=== PATIENT | female | born 2005 | race Caucasian/White ===

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

== ENCOUNTER 2024-01-03 05:06 | Inpatient (IN) | payer OTHER, SELFPAY ==
[2024-01-03] VITALS (62 sets, daily range): BP systolic 82–154; BP diastolic 50–104; PULSE 65–121; TEMP 35.8–36.8
--- OUTSIDE RECORDS SUMMARY | 2024-01-03 05:11 | XMS_ITS | CCD ---
Author Organization [facility] Care Team Providers Care Parachute Taper Name Role Phone No Pcp, No Pcp [...] Translations: [GENTAMICIN SULFATE] Drug Allergy 9 Itching [facility] (9 sources) Penicillins; Translations: [PENICILLINS] [...] UA Negative Negative - 4(70) +++ mg/dL [facility] Blood, UA Negative Negative - 50 Arsenio/mcL [facility] Clarity, UA Clear [facility] Color, UA Yellow [facility] Glucose, UA Negative Negative - 1999(110) ++++ mg/dL [facility] Interpretation and review of laboratory results Abnormal [facility] Ketones, UA Negative Negative - 160(16) ++++ mg/dL [facility] Leukocytes, UA Negative Negative - 500+++ Marie/mcL [facility] Nitrite, UA Negative Negative - Positive [facility] pH, UA 5.5 5 - 9 [facility] Protein, UA Negative Negative - 1999(20) ++++ mg/dL [facility] Spec Grav, UA 1.020 1 - 1.03 [facility] Urobilinogen, UA 1.0 0.2 - 12 mg/dL [facility] Ultrasound - OfficeOrdered B y: Lilian Sandhu on 11-14-2023 Radiology Study observation (narrative) [facility] Ultrasound - OfficeOrdered B y: Lilian Leales on 11-08-2023 [facility] CBC AND AUTO DIFFon 10-09-19 24 ABSOLUTE BASOPHIL 0.0 X10E9/L Normal 0.0-0.2 [facility] Comment on above: Performed By: #### L B1323, HBELEC, 27624-3 #### [facility] ([id number]) [address], [place] [address] #### CBCA, 16379-7, 8014-3, 14062-2, 1504-0 #### [facility] ([id number]) [address], [address] [place] [address] ABSOLUTE NEUTROPHIL 8.3 X10E9/L High 1.5-6.6 [facility] Comment on above: Performed By: #### L B1323, HBELEC, 26673-5 #### [facility] ([id number]) [address] [place] [address] #### CBCA, 53529-7, 8014-3, 74549-6, 1504-0 #### [facility] ([id number]) [address], [address] [place] [address] Basophils/100 WBC (Bld) 0.3 % Normal [facility] Comment on above: Performed By: #### L B1323, HBELEC, 88254-8 #### [facility] ([id number]) [address] [place] [address] #### CBCA, 19216-0, 8014-3, 58216-9, 1504-0 #### [facility] ([id number]) [address], [address] [place] [address] Eosinophils (Bld) [#/Vol] 0.0 10*3/uL Normal 0.0-0.4 [facility] Comment on above: Performed By: #### L B1323, HBELEC, 55825-8 #### [facility] ([id number]) [address] [place] [address] #### CBCA, 45152-7, 8014-3, 83817-9, 1504-0 #### [facility] ([id number]) [address], [address] [place] [address] Eosinophils/100 WBC (Bld) 0.3 % Normal [facility] Comment on above: Performed By: #### L B1323, HBELEC, 02442-1 #### [facility] ([id number]) [address] [place] [address] #### CBCA, 01772-8, 8014-3, 90485-7, 1504-0 #### [facility] ([id number]) [address], [address] [place] [address] Erythrocyte distribution width (RBC) [Ratio] 13.5 % Normal 11.5-15.0 [facility] Comment on above: Performed By: #### L B1323, HBELEC, 26452-4 #### [facility] ([id number]) [address] [place] [address] #### CBCA, 19803-9, 8014-3, 87042-4, 1504-0 #### [facility] ([id number]) [address], [facility] [address] [place] [address] Hematocrit (Bld) [Volume fraction] 31.1 % Low 35-47 [facility] Comment on above: Performed By: #### L B1323, HBELEC, 88870-9 #### [facility] ([id number]) [address] [place] [address] #### CBCA, 48072-9, 8014-3, 73806-8, 1504-0 #### [facility] ([id number]) [address], [facility] [address] [place] [address] Hemoglobin (Bld) [Mass/Vol] 11.0 g/dL Low 11.7-15.5 [facility] Comment on above: Performed By: #### L B1323, HBELEC, 06503-2 #### [facility] ([id number]) [address] [place] [address] #### CBCA, 27350-7, 8014-3, 12875-9, 1504-0 #### [facility] ([id number]) [address], [facility] [address] [place] [address] Lymphocytes (Bld) [#/Vol] 1.5 10*3/uL Normal 1.0-3.5 [facility] Comment on above: Performed By: #### L B1323, HBELEC, 03081-6 #### [facility] ([id number]) [address] [place] [address] #### CBCA, 25639-5, 8014-3, 08690-7, 1504-0 #### [facility] ([id number]) [address], [address] [place] [address] Lymphocytes/100 WBC (Bld) 14.1 % Normal [facility] Comment on above: Performed By: #### L B1323, HBELEC, 86834-8 #### [facility] ([id number]) [address] [place] [address] #### CBCA, 00650-2, 8014-3, 89644-2, 1504-0 #### [facility] ([id number]) [address], [address] [place] [address] MCH (RBC) [Entitic mass] 31.4 pg Normal 27-34 [facility] Comment on above: Performed By: #### L B1323, HBELEC, 86421-8 #### [facility] ([id number]) [address] [place] [address] #### CBCA, 06597-7, 8014-3, 16741-2, 1504-0 #### [facility] ([id number]) [address], [address] [place] [address] MCHC (RBC) [Mass/Vol] 35.3 g/dL Normal 32-36 [facility] Comment on above: Performed By: #### L B1323, HBELEC, 52264-6 #### [facility] ([id number]) [address] [place] [address] #### CBCA, 76751-5, 8014-3, 71887-4, 1504-0 #### [facility] ([id number]) [address], [address] [place] [address] MCV (RBC) [Entitic vol] 89 fL Normal 80-100 [facility] Comment on above: Performed By: #### L B1323, HBELEC, 61677-6 #### [facility] ([id number]) [address] [place] [address] #### CBCA, 14080-0, 8014-3, 74729-5, 1504-0 #### [facility] ([id number]) [address], [address] [place] [address] Monocytes (Bld) [#/Vol] 0.5 10*3/uL Normal 0-0.9 [facility] Comment on above: Performed By: #### L B1323, HBELEC, 75372-4 #### [facility] ([id number]) [address] [place] [address] #### CBCA, 02230-1, 8014-3, 86850-7, 1504-0 #### [facility] ([id number]) [address], [address] [place] [address] Monocytes/100 WBC (Bld) 5.2 % Normal [facility] Comment on above: Performed By: #### L B1323, HBELEC, 65835-6 #### [facility] ([id number]) [address] [place] [address] #### CBCA, 28192-9, 8014-3, 43101-2, 1504-0 #### [facility] ([id number]) [address], [address] [place] [address] Neutrophils/100 WBC (Bld) 80.1 % Normal [facility] Comment on above: Performed By: #### L B1323, HBELEC, 54122-2 #### [facility] ([id number]) [address] [place] [address] #### CBCA, 18790-6, 8014-3, 60234-2, 1504-0 #### [facility] ([id number]) [address], [address] [place] [address] Platelet mean volume (Bld) [Entitic vol] 8.5 fL Normal 7-12 [facility] Comment on above: Performed By: #### L B1323, HBELEC, 16901-6 #### [facility] ([id number]) [address] [place] [address] #### CBCA, 02219-7, 8014-3, 53102-6, 1504-0 #### [facility] ([id number]) [address] [facility], [address] [place] [address] Platelets (Bld) [#/Vol] 192 10*3/uL Normal 150-450 [facility] Comment on above: Performed By: #### L B1323, HBELEC, 97927-7 #### [facility] ([id number]) [address] [place] [address] #### CBCA, 54552-5, 8014-3, 25709-3, 1504-0 #### [facility] ([id number]) [address], [address] [place] [address] RBC COUNT 3.49 X10E12/L Low 3.80-5.20 [facility] Comment on above: Performed By: #### L B1323, HBELEC, 10472-4 #### [facility] ([id number]) [address] [place] [address] #### CBCA, 59552-7, 8014-3, 05093-2, 1504-0 #### [facility] ([id number]) [address] [place] [address], [address] [place] [address] WBC (Bld) [#/Vol] 10.4 10*3/uL Normal 4.0-11.0 [facility] Comment on above: Performed By: #### L B1323, HBELEC, 24103-6 #### [facility] ([id number]) [address] [place] [address] #### CBCA, 47172-9, 8014-3, 53633-5, 1504-0 #### [facility] ([id number]) [address] [place] [address], [address] [place] [address] CHLAMYDIA SEROLOGYon 024 C PNEUMONIAE IGG < 1:64 Normal <1:64 [facility] Comment on above: Performed By: #### S CLAM #### [facility] ([id number]) [address] [place] [address] C PNEUMONIAE IGM <1:20 Normal <1:20 [facility] Comment on above: Performed By: #### S CLAM #### [facility] ([id number]) [address] [place] [address] C PSITTACI IGG < 1:64 Normal <1:64 [facility] Comment on above: Result Comment: [...] developed and its performance characteristics determined by [facility]. It has not been cleared or approved by the [place] Food and Drug Administration. This test was performed in a CLIA certified laboratory and is intended for clinical purposes. Performed By: [facility] [address] [place] [address] Materials Scientist: Bernardino Burkett MD, PhD CLIA Number: [id number] Performed By: #### S CLAM #### [facility] ([id number]) [address] [place] [address] C PSITTACI IGM <1:20 Normal <1:20 [facility] Comment on above: Performed By: #### S CLAM #### [facility] ([id number]) [address] [place] [address] C TRACHOMATIS IGG 1:128 High <1:64 [facility] Comment on above: Performed By: #### S CLAM #### [facility] ([id number]) [address] [place] [address] C TRACHOMATIS IGM <1:20 Normal <1:20 [facility] Comment on above: Performed By: #### S CLAM #### [facility] ([id number]) [address] [place] [address] Glucose 1 Hr post 50 g gluco se PO [Mass/Vol]on 10-09-2023 GLU 1H POST 50G LOAD 135 mg/dL Normal 65-139 [facility] Comment on above: Performed By: #### L B1323, HBELEC, 12696-7 #### [facility] ([id number]) [address] [place] [address] #### CBCA, 58498-7, 8014-3, 60370-4, 1504-0 #### [facility] ([id number]) [address] [facility], [address] [place] [address] HCV RNA RICCI+probe Qnon 10-09 HCV RNA QUANT PCR Not detected Normal Undetected [facility] Comment on above: Result Comment: NOTE Result in log IU/mL is Undetected. ADDITIONAL INFORMATION The quantification range of this assay is 15 to 100,000,000 IU/mL (1.18 log to 8.00 log IU/mL). Testing was performed using the silke HCV test ([employer] with the silke [id number] System. Test Performed by: [facility] [address] [place] [address] Automotive Artist: Luis Manuel Wharton M.D. Ph.D.; CLIA# [id number] Performed By: #### L B1323, HBELEC, 64536-2 #### [facility] ([id number]) [address] [place] [address] #### CBCA, 27066-1, 8014-3, 35049-1, 1504-0 #### [facility] ([id number]) [address], [address] [place] [address] HGB ELECTRO INTERPon 024 HGB ELECTRO INTERP See below Normal [facility] Comment on above: Result Comment: NOTE [...] history. Performed By: #### L B1323, HBELEC, 97418-9 #### [facility] ([id number]) [address] [place] [address] #### CBCA, 77647-9, 8014-3, 30291-7, 1504-0 #### [facility] ([id number]) [address] [facility], [address] [place] [address] STAFF REVIEW See below Normal [facility] Comment on above: Result Comment: NOTE Reviewed by Tarah Mcdermott DO, MPH Test Performed By: [place] [address] Materials Scientist: Damon Marie III, M.D. CLIA #[id number] Performed By: #### L B1323, HBELEC, 12269-0 #### [facility] ([id number]) [address] [place] [address] #### CBCA, 27371-8, 8014-3, 98724-5, 1504-0 #### [facility] ([id number]) [address] [facility], [address] [place] [address] HGB ELECTROPHORESISon 2023 Abnormal Hb See below Normal No abnormal hemoglobin identified. [facility] Comment on above: Result Comment: NOTE No abnormal hemoglobin identified. Test Performed By: [place] [address] Materials Scientist: Damon Marie III, M.D. CLIA #[id number] Performed By: #### L B1323, HBELEC, 42798-5 #### [facility] ([id number]) [address] [place] [address] #### CBCA, 02140-7, 8014-3, 97805-9, 1504-0 #### [facility] ([id number]) [address] [facility], [address] [place] [address] Hb A Percent 97.2 % Normal 96.2-98.0 [facility] Comment on above: Performed By: #### L B1323, HBELEC, 41171-8 #### [facility] ([id number]) [address] [place] [address] #### CBCA, 16298-2, 8014-3, 01636-8, 1504-0 #### [facility] ([id number]) [address] [facility], [address] [place] [address] Hb A2 Percent 2.8 % Normal 2.0-3.1 [facility] Comment on above: Performed By: #### Jf B1323, HBELEC, 27699-7 #### [facility] ([id number]) [address] [place] [address] #### CBCA, 04906-2, 8014-3, 17331-0, 1504-0 #### [facility] ([id number]) [address] [place] [address], [address] [place] [address] Rubella virus IgG Qn (S)on 0 10-09-2023 RUBELLA IgG 35 IU/mL Normal [facility] Comment on above: Result Comment: Interpretation-------- <8 NEGATIVE-considered Not Immune 8-9 EQUIVOCAL-consider retesting with new specimen >9 POSITIVE-considered Immune Performed By: #### Jf B1323, HBELEC, 53930-6 #### [facility] ([id number]) [address] [place] [address] #### CBCA, 06734-4, 8014-3, 68263-7, 1504-0 #### [facility] ([id number]) [address] [place] [address], [address] [address] T. pallidum IgG+IgM IA Ql (S )on 10-09-2023 Syphilis Total <0.2 Normal 0.0-0.8 [facility] Comment on above: Result Comment: NON REACTIVE No serologic evidence of infection to Treponema pallidum (syphilis). Repeat testing may be considered in patients with suspected acute or primary syphilis in 2 to 4 weeks. Performed By: #### L B1323, HBELEC, 75849-8 #### [facility] ([id number]) [address] [place] [address], [place] [address] #### CBCA, 88506-1, 8014-3, 08005-1, 1504-0 #### [facility] ([id number]) [address] [facility], [address] [place] [address] VZV IgG IA Ql (S)on 10-09-19 24 VARICELLA IgG 0.4 AI Normal <0.9 [facility] Comment on above: Result Comment: Interpretation-------- <0.9 Negative 0.9 - 1.0 Equivocal >1.0 Positive Performed By: #### L B1323, HBELEC, 64666-3 #### [facility] ([id number]) [address] [place] [address] #### EFREMA, 84185-9, 8014-3, 68963-6, 1504-0 #### [facility] ([id number]) [address] [facility], [address] [place] [address] Vital Signs Date Time Vital Sign Value Performing Clinician Facility 12-06-2023 09:46-0500 Body height 165.1 cm Jennie Vargas MD Work Phone: [facility] 12-06-2023 09:46-0500 Body mass index (BMI) [Ratio] 28.51 kg/m2 Jennie Vargas MD Work Phone: [facility] 12-06-2023 09:46-0500 Body weight 77.7 kg [facility] 12-06-2023 09:46-0500 Diastolic blood pressure 65 mm[Hg] Jennie Vargas MD Work Phone: [facility] Comment on above: 26 cm arm circumfere nce/Dark blue cuff used 12-06-2023 09:46-0500 Heart rate 79 /min Jennie Vargas MD Work Phone: [facility] 12-06-2023 09:46-0500 Systolic blood pressure 124 mm[Hg] Jennie Vargas MD Work Phone: [facility] Comment on above: 26 cm arm circumfere nce/Dark blue cuff used 11-29-2023 11:10-0500 Body height 165.1 cm Yary Cantu MD Work Phone: [facility] 11-29-2023 11:10-0500 Body mass index (BMI) [Ratio] 28.32 kg/m2 Yary Cantu MD Work Phone: [facility] 11-29-2023 11:10-0500 Body weight 77.2 kg Yary Cantu MD Work Phone: [facility] 11-29-2023 11:10-0500 Diastolic blood pressure 81 mm[Hg] Yary Cantu MD Work Phone: [facility] 11-29-2023 11:10-0500 Heart rate 98 /min Yary Cantu MD Work Phone: [facility] 11-29-2023 11:10-0500 Systolic blood pressure 128 mm[Hg] Yary Cantu MD Work Phone: [facility] 11-15-2023 10:50-0500 Body mass index (BMI) [Ratio] 28.09 kg/m2 Emile Celia DO Work Phone: [facility] 11-15-2023 10:50-0500 Body weight 76.57 kg Emile Celia DO Work Phone: [facility] 11-15-2023 10:50-0500 Diastolic blood pressure 72 mm[Hg] Emile Celia DO Work Phone: [facility] 11-15-2023 10:50-0500 Systolic blood pressure 118 mm[Hg] Emile Celia DO Work Phone: [facility] Healthcare Encounters Encounter Date Encounter Type Care Provider Facility Start: 12-28-2023 End: 12-28-2023 ambulatory EMILE CELIA Not Available Start: 12-20-2023 End: 12-20-2023 ambulatory EMILE CELIA Not Available Start: 12-14-2023 End: 12-14-2023 ambulatory EMILE CELIA Not Available Start: 12-07-2023 End: 12-07-2023 ambulatory EMILE CELIA Not Available Start: 12-06-2023 End: 12-07-2023 ambulatory EMILE R CELIA [facility] Start: 12-06-2023 End: 12-06-2023 Office outpatient visit 15 minutes Jennie Vargas MD Work Phone: [facility] Comment on above: abnormality af fecting management of mother, single or unspecified fetus (Primary Dx); Pelvic kidney; Abnormal ultrasound; 35 weeks gestation of Start: 11-30-2023 End: 11-30-2023 ambulatory EMILE CELIA Not Available Start: 11-29-2023 End: 11-29-2023 Office consultation new/estab patient 60 min Yary Cantu MD Work Phone: [facility] Comment on above: renal anomaly, single gestation (Primary Dx) Start: 11-15-2023 End: 11-15-2023 ambulatory EMILE CELIA Not Available Start: 11-15-2023 End: 11-15-2023 Office outpatient visit 15 minutes Emile Celia DO Work Phone: [facility] Comment on above: Third trimester preg willis Start: 11-14-2023 Orders Only Not In System Ref Prov [facility] Start: 11-01-2023 Orders Only Donavan Pressley MD Work Phone: [facility] Start: 11-01-2023 End: 11-01-2023 ambulatory DANIELLE HARMAN Not Available Start: 10-18-2023 End: 10-18-2023 ambulatory EMILE CELIA Not Available Start: 10-17-2023 End: 10-18-2023 ambulatory [facility] Start: 10-09-2023 End: 10-10-2023 ambulatory ABEER [facility] Start: 09-29-2023 Documentation procedure Reed Ascencio LCGC Work Phone: [facility] Comment on above: Outgoing Ca ll Start: 09-28-2023 Orders Only Lilian aSndhu [employer] [facility] Comment on above: Pelvic kidney (Prima ry Dx); Choroid plexus cyst, , affecting care of mother, antepartum, single gestation; 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 Start: 09-19-2023 End: 09-20-2023 ambulatory [facility] Procedures Date Procedure Procedure Detail Performing Clinician Start: 11-15-2023 Urnls dip stick/tabl et rgnt non-auto w/o micrscp [facility] Work Phone: Start: 11-08-2023 ULTRASOUND OFFICE Not I n System Ref Prov Plan of Treatment Date Care Activity Detail Author Start: 12-05-2024 Adult BMI Screening Adult BMI Screen [facility] Start: 12-05-2024 Tobacco Screening Tobacco Screening [facility] Start: 11-29-2024 Adult BMI Screening Adult BMI Screen [facility] Start: 11-29-2024 Tobacco Screening Tobacco Screening [facility] Start: 10-09-2024 Screening for Chlamy laurel trachomatis Chlamydia Screening [facility] Start: 09-28-2024 End: 09-28-2024 US MFM with or without consult US MFM with or without consult Imaging Routine Pelvic kidney Choroid plexus cyst, , affecting care of mother, antepartum, single gestation 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 Expected: 09/28/2024 (Approximate), Expires: 09/28/[address] [facility] Work Phone: Comment on above: Expected: 09/28/2024 (Approximate), Expires: 09/28/2024 Start: 09-19-2024 Adult BMI Screening Adult BMI Screen ing [facility] Start: 09-19-2024 Tobacco Screening Tobacco Screening [facility] Start: 08-15-2024 Screening for Chlamy laurel trachomatis Chlamydia Screening [facility] Start: 12-06-2023 End: 12-06-2023 Patient encounter procedure [facility] Start: 11-30-2023 End: 11-30-2023 Patient encounter procedure 11/30/2023 10:40 AM EST Routine [facility] [address] [place] [phone] Emile Yang DO [address] [place] [address] [facility] Start: 11-29-2023 End: 11-29-2023 Patient encounter procedure 11/29/2023 11:00 AM EST Office Visit [facility] [address] [place] [id number] Yary Cantu MD [address] [place] [address] [facility] Start: 11-01-2023 End: [...] 10/17/2023 2:15 PM EST Appointment [facility] [address] [place] [id number] [facility] Start: 06-02-2023 Influenza vaccination Influenza Vacc ine [facility] Start: 2023 DTaP,Tdap and Td Vaccines (1 - Tdap) DTaP,Tdap and Td Vaccines (1 - Tdap) [facility] Start: 2022 Adult BMI Follow Up Plan Adult BMI Follow Up Plan [facility] Start: 2016 Depression Screening Depression Scre ening [facility] Payers Date Payer Category Payer Unknown [id number] 2.16.84 [id number] 2004 Unknown [id number] 2.16.8 [id number] 2004 Unknown [id number] 2.16.8 [id number] 2004 Unknown [id number] 2.16.84 [id number] 2004 Unknown [id number] 2.16.84 [id number] 2004 Unknown [id number] 2.16.84 [id number] 2004 Unknown [id number] 2.16.84 [id number] 2004 Unknown [id number] 2.16.84 [id number] 2004 Unknown [id number] 2.16.84 [id number] 2004 Unknown [id number] 2.16.84 [id number] 2004 Unknown [id number] 2.16.84 [id number] 2004 Unknown [id number] 2.16.84 [id number] 2004 Unknown [id number] 2.16.84 [id number] 2004 Unknown [id number] 2.16.84 [id number] 2003 Medicaid [id number] 2003 Medicaid [id number] Social History Date Type Detail Facility Start: 02-23-2023 End: 08-17-2023 Tobacco smoking status NHIS Never smoked tobacco [facility] Start: 02-23-2023 End: 08-17-2023 Tobacco use and exposure Smokeless tobacco non-user [facility] Start: 09-19-2023 End: 12-06-2023 Alcohol intake Ex-drinker (finding) [facility] Start: 11-12-2020 End: 09-19-2023 History of Social function [facility] Start: 11-12-2020 End: 09-19-2023 Tobacco use panel [facility] Housing Instability Unknown [facility] Start: 04-13-2023 [facility] Start: 2004 Sex Assigned At Not on file [facility] Start: 11-15-2023 Alcohol intake Lifetime non-d kassie (finding) [facility] Clinical Notes 09-29-2023 to 12-06-2023 Jennie Vargas [...] patient is in complete care of her presales senior specialist. Patient does have ultrasound and office visit [...] Referring and communicating with other health care information associate (not separately reported) Jennie Vargas MD [place] [address] [facility], the CDC, and other organizations representing maternal and public health professionals recommend that , , and lactating people and those considering receive the COVID-19 vaccination. Vaccination is the best method to reduce maternal and complications of SARS-CoV-2 infection. This document was created with [employer] technology. Though I make every effort to review the dictation as it is transcribed, on occasion the spoken word can be misinterpreted by the technology leading to inappropriate words, phrases, or sentences. This note is addressed to the requesting provider as a consultation for clinical guidance. Specific medical abbreviations are occasionally used and those are generally approved by the [place]?Board of?Obstetrics and?Gynecology?as well as?Kashif randall abbreviations. The above plan of care was based solely on the diagnoses for which a consultation was requested. ?More frequent testing may be indicated based on her other medical/obstetrical conditions. The management of other or medical conditions is beyond the scope of requested consultation and will continue to be followed by the primary presales senior specialist or primary care provider. Note to patient: [...] provider today? no documented in this encounter [employer] 11-29-2023 History of Present illness Narrative Referring Physician: Jagdish Lyle MD [address] Rogelio Abbott is a 18 y.o. [...] Ms. Abbott is planning to deliver at [facility]. I have recommended that we first get [...] no records available documented in this encounter [facility] [employer] 11-29-2023 Instructions Yary Cantu MD - 11/29/2023 [...] rule out VUR. [facility] History of Present illness Narrative Reason [...] nursing note reviewed. Exam conducted with a telegrapher agent present. Vitals: Estimated body mass index is [...] Emile Yang DO documented in this encounter [facility] 09-29-2023 History of Present illness Narrative Summary: FOB carrier screening results Called and discussed FOB's carrier screening results with Rogelio. He screened negative for cystic fibrosis and HBB-related hemoglobinopathies. We reviewed that the likelihood her is affected with CF or a hemoglobinopathy is low based on these results. She understood and had no further questions. 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 Choroid plexus cyst, , affecting care of mother, antepartum, single gestation 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 [facility] Diagnosis Third trimester state, incidental [facility] Diagnosis renal anomaly, single gestation- Primary [facility] Diagnosis abnormality affecting management of mother, single or unspecified fetus- 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 Abnormal ultrasound 35 weeks gestation of documented in this [facility] filedocumented in this [facility] filedocumented in this encounter [facility] filedocumented in this encounter [facility] on filedocumented in this encounter [facility] Reason for Referral Specialty Diagnoses / Procedures Referred By Bryan woodson Referred To Contact Maternal and Medicine Diagnoses Pelvic kidney Choroid plexus cyst, , affecting care of mother, antepartum, single gestation 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 Procedures US MFM with or without consult Jagdish Lyle MD [address], [address] [place] [id number] [facility] [address] [place] [address] Referral ID Status Reason Start Date Expiration Date V isits Requested Visits Authorized [id number] Pending Review 09/28/2023 09/27/2024 1 1 Summary Purpose Family History No Family History Records FoundNo Family History Records FoundNo Family History Records Found Advance Directives No Advanced Directives Records FoundNo Advanced Directives Records FoundNo Advanced Directives Records Found Additional Source Comments Care Teams (unrecognized sec tion and content) Parachute Taper Relationship Specialty Start Date End Date No Pcp, [place] [address] PCP - General Family Medicine 05/30/23 Parachute Taper Relationship Specialty Start Date End Date No Pcp, [place] [address] PCP - General Family Medicine 05/30/23 Parachute Taper Relationship Specialty Start Date End Date Emile Yang DO [address] , [place] [address] PCP - General Obstetrics and Gynecology 10/09/23 Parachute Taper Relationship Specialty Start Date End Date PhillMolly schneiderDO [address] [place] [address] PCP - General Family Medicine 02/23/23 Parachute Taper Relationship Specialty Start Date End Date Emile Yang DO [address] , [facility] [place] [address] PCP - General Obstetrics and Gynecology 10/09/23 Parachute Taper Relationship Specialty Start Date End Date Emile Yang DO [address] , [facility] [place], [place] [id number] PCP - General Obstetrics and Gynecology 10/09/23 Reason for Visit (unrecogniz ed section and content) Reason Onset Date Comments Outgoing Call 09/29/2023 Reason Comments Routine Visit Reason Comments New Patient Pelvic kidney Specialty Diagnoses / Procedures Referred By Bryan woodson Referred To Contact Pediatric Urology Diagnoses Pelvic kidney Jagdish Lyle MD [address] [address] Yary Cantu MD [address] [place] [address] Referral ID Status Reason Start Date Expiration Date Visits Requested Visits Authorized [id number] Pending Review Specialty Services Required 3 09/20/2024 1 1 Reason Comments 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 [facility] [employer] [facility]. provides no warranty or guarantee of the accuracy or completeness of information in this document.
[2024-01-03] MEDS: 0.9 % SODIUM CHLORIDE 1,000 ML 125 ML IV ×2 (05:47→12:54)
[2024-01-03 05:57] LABS: Hematocrit 33.8 % (36.0-48.0); Hemoglobin 11.8 g/dL (12.0-16.0); Mean Corpuscular HGB Conc 34.9 g/dL (29.9-35.2); Mean Corpuscular Hemoglobin 30.7 pg (26.7-34.0); Mean Platelet Volume 10.9 fL (9.5-13.5); Platelet Count 182 10^3/uL (150-450); Red Blood Count 3.84 10^6/uL (4.20-5.40); Red Cell Distribution Width 13.3 % (11.0-15.0); White Blood Count 11.6 10^3/uL (4.0-11.0)
[2024-01-03 06:08] LABS: Amphetamine Screen Urine NEGATIVE (NEGATIVE); Barbiturates Screen Urine NEGATIVE (NEGATIVE); Benzodiazepines Screen Urine NEGATIVE (NEGATIVE); Buprenorphine Screen Urine NEGATIVE (NEGATIVE); Cannabinoid Screen Urine NEGATIVE (NEGATIVE); Cocaine Screen Urine NEGATIVE (NEGATIVE); Methadone Screen Urine NEGATIVE (NEGATIVE); Methamphetamines Screen Urine NEGATIVE (NEGATIVE); Opiate Screen Urine NEGATIVE (NEGATIVE); Oxycodone Screen Urine NEGATIVE (NEGATIVE); Phencyclidine Screen Urine NEGATIVE (NEGATIVE); Tricyclic Antidepressant Urine NEGATIVE (NEGATIVE)
[2024-01-03] MEDS: OXYTOCIN/0.9 % SODIUM CHLORIDE 10 UNITS/500 ML PLAST..BAG 6 UNIT IV (06:17)
[2024-01-03] MEDS: ROPIVACAINE HCL/PF 400 MG/200 ML PREMIX 6 MG EPIDURAL (15:18)
[2024-01-03] MEDS: 0.9 % SODIUM CHLORIDE 1,000 ML 1000 ML IV (15:24)
[2024-01-03] MEDS: OXYTOCIN/0.9 % SODIUM CHLORIDE 10 UNITS/500 ML PLAST..BAG 60 UNIT IV (18:18)
--- NOTE | 2024-01-03 20:17 | W.PC.ACHO ---
Registration Status: ADM IN Primary Language: Moroccan Preferred Language: Moroccan Report recieved from Jer at 1900. Active Medications Generic Name Dose Route Start Last Admin Trade Name Freq PRN Reason Stop Dose Admin Carboprost Tromethamine 250 mcg 01/03/24 05:10 Carboprost Tromethamine 250 Mcg/Ml 1 Ml Vial IM 01/05/24 05:10 Q15M PRN Bleeding Diphenhydramine HCl 25 mg 01/03/24 05:10 Diphenhydramine Hcl 50 Mg/Ml (1ml) Vial IV 01/04/24 05:14 Q6H PRN Itching Ephedrine Sulfate 5 mg 01/03/24 05:10 Ephedrine Sulfate 50 Mg/Ml Vial IV 01/04/24 05:14 Q5M PRN Blood Pressure - Low Fentanyl Citrate 100 mcg 01/03/24 05:10 Fentanyl Citrate/Pf 100 Mcg/2 Ml Vial EPIDURAL ONCE PRN epidural Sodium Chloride 1,000 mls @ 125 mls/hr 01/03/24 05:30 01/03/24 12:54 Sodium Chloride 0.9% 1,000 Ml IV 125 mls/hr .Q8H MARK Administration Oxytocin/Sodium Chloride 20 units in 1,000 mls @ 125 mls/hr 01/03/24 05:10 Pitocin 20 Unit/1,000 Ml-Ns IV Q8H PRN POST DELIVERY Ropivacaine/Sodium Chloride 400 mg in 200 mls @ 6 mls/hr 01/03/24 05:15 01/03/24 15:18 Naropin 0.2% 400 Mg/200 Ml Bag EPIDURAL 6 mls/hr Q24H MARK Administration Oxytocin/Sodium Chloride 10 units in 500 mls @ 6 mls/hr 01/03/24 06:13 01/03/24 06:17 Pitocin 10 Unit/500 Ml-Ns IV 2 milliunit/min TITR PRN 6 mls/hr 0 Administration Protocol 2 MILLIUNIT/MIN Oxytocin/Sodium Chloride 10 units in 500 mls @ 6 mls/hr 01/03/24 17:30 01/03/24 18:18 Pitocin 10 Unit/500 Ml-Ns IV 0 milliunit/min TITR MARK 60 mls/hr Administration Protocol 2 MILLIUNIT/MIN Lidocaine 5 ml 01/03/24 05:10 Lidocaine Viscous 2% 15 Ml Solution TOPICAL ONCE PRN Pain Lidocaine 1 ml 01/03/24 05:10 Lidocaine Hcl 1% 200 Mg/20 Ml Mdv INJ ONCE PRN Pain Lidocaine 5 ml 01/03/24 05:10 Lidocaine Hcl 2% Pf 100 Mg/5 Ml Vial INJ 01/04/24 05:14 Q1H PRN epidural Methylergonovine Maleate 0.2 mg 01/03/24 05:10 Methylergonovine Maleate 0.2 Mg/Ml Ampule IM 01/05/24 05:10 ONCE PRN Uterine Contractility/Contract Methylergonovine Maleate 0.2 mg 01/03/24 05:10 Methylergonovine Maleate 0.2 Mg Tablet PO 01/05/24 05:10 Q4H PRN Uterine Contractility/Contract Misoprostol 600 mcg 01/03/24 05:10 Misoprostol 100 Mcg Tablet PO 01/05/24 05:10 ONCE PRN Uterine Bleeding Misoprostol 800 mcg 01/03/24 05:10 Misoprostol 100 Mcg Tablet SL 01/05/24 05:10 ONCE PRN Uterine Bleeding Misoprostol 1,000 mcg 01/03/24 05:10 Misoprostol 100 Mcg Tablet IN 01/05/24 05:10 ONCE PRN Uterine Bleeding Naloxone HCl 0.4 mg 01/03/24 05:10 Naloxone Hcl 0.4 Mg/Ml Vial IV 01/04/24 05:14 ONCE PRN epidural Ondansetron HCl 4 mg 01/03/24 05:10 Ondansetron Pf 4 Mg/2 Ml Vial IV Q6H PRN Nausea And Vomiting Ondansetron HCl 4 mg 01/03/24 05:10 Ondansetron 4 Mg Rapdis Tablet SL Q6H PRN Nausea And Vomiting Oxytocin 10 unit 01/03/24 05:10 Oxytocin 10 Unit/Ml Vial IM 01/05/24 05:10 ONCE PRN bleeding Diet Category Date Time Status Regular Consistency Diet Diet 01/03/24 05:11 Active Consults Category Date Time Status Consult to Anesthesiology Routine Cons 01/03/24 Ordered IV Insertion/Site Date of IV Line Insertion [ 01/03/24 Short PIV (<1.75 in) 20g left Hand] IV Insertion Time [Short PIV ( 05:38 <1.75 in) 20g left Hand] Neurology Patient orientation (short person,place,time,situation list) Patient orientation (short person,place,time,situation list) Respiratory Oxygen Delivery Method Room Air Oxygen Delivery Method Room Air Oxygen Delivery Method Room Air Catheter Urinary Catheter Date of 01/03/24 Insertion [Urethral] Urinary Catheter Time of 15:50 Insertion [Urethral]
[2024-01-03] MEDS: OXYTOCIN/0.9 % SODIUM CHLORIDE 20 UNITS/1,000 ML PLAST..BAG 125 UNIT IV (23:32)
[2024-01-03] MEDS: LIDOCAINE HCL 1% 200 MG/20 ML MDV INJ (23:32)
--- NOTE | 2024-01-03 23:46 | PM.OBPRCVD ---
Procedure Intrapartal events: None Induction method: per pitocin protocol Delivery augmentation: rupture of membranes and pitocin Delivery monitor: external FHT and external uterine Route of delivery: Episiotomy Description: none L&D Laceration Description: periurethral - 1st degree and perineal - 1st degree Delivery repair: Vicryl Estimated blood loss (mL): 200 Anesthesia type: Epidural Disposition: floor Infant Delivery date: 01/03/24 Gender: female presentation: vertex Placental delivery description: Spontaneous cord description: 3 Vessels
[2024-01-04] VITALS (14 sets, daily range): BP systolic 105–130; BP diastolic 58–76; PULSE 79–114; TEMP 35.8–36.8
[2024-01-04] MEDS: GLYCERIN/WITCH HAZEL PADS 1 PAD TOPICAL (00:31)
[2024-01-04] MEDS: BENZOCAINE/MENTHOL 85 GRAM SPRAY BOTTLE 1 APPLIC TOPICAL (00:31)
[2024-01-04] MEDS: IBUPROFEN 600 MG TABLET PO ×4 (00:31→20:18)
[2024-01-04 06:00] LABS: Basophils Percent Auto 0.1 % (0.2-2.0); Eosinophils Percent Auto 0.1 % (0.9-7.0); Hematocrit 28.4 % (36.0-48.0); Hemoglobin 9.7 g/dL (12.0-16.0); Immature Granulocytes Abs Auto 0.07 10^3/uL (0.00-0.03); Immature Granulocytes Pct Auto 0.4 % (0.0-0.5); Lymphocytes Absolute Auto 1.5 10^3/uL (1.2-3.8); Mean Corpuscular HGB Conc 34.2 g/dL (29.9-35.2); Mean Corpuscular Hemoglobin 30.5 pg (26.7-34.0); Mean Corpuscular Volume 89.3 fL (81.0-99.0); Mean Platelet Volume 10.8 fL (9.5-13.5); Monocytes Absolute Auto 1.4 10^3/uL (0.3-0.8); Monocytes Percent Auto 7.6 % (1.7-12.0); Neutrophils Absolute Auto 15.4 10^3/uL (1.4-6.5); Neutrophils Percent Auto 83.8 % (43.0-75.0); Platelet Count 153 10^3/uL (150-450); Red Blood Count 3.18 10^6/uL (4.20-5.40); Red Cell Distribution Width 13.4 % (11.0-15.0); White Blood Count 18.3 10^3/uL (4.0-11.0)
--- NOTE | 2024-01-04 07:31 | W.PC.ACHO ---
Registration Status: ADM IN Primary Language: Dominican Preferred Language: Dominican Report given to jody CAIN at 0705. Active Medications Generic Name Dose Route Start Last Admin Trade Name Freq PRN Reason Stop Dose Admin Acetaminophen 650 mg 01/03/24 23:47 Acetaminophen 325 Mg Tablet PO Q6H PRN Mild Pain Al Hydroxide/Mg Hydroxide 2,400 mg 01/03/24 23:47 Magnesium Hydroxide 2,400 Mg/10 Ml Oral.Susp PO Q6H PRN Dyspepsia Benzocaine/Menthol 1 applic 01/03/24 23:47 01/04/24 00:31 Benzocaine/Menthol 85 Gram Fine Bottle TOPICAL 1 applic Q2H PRN Administration Pain Carboprost Tromethamine 250 mcg 01/03/24 05:10 Carboprost Tromethamine 250 Mcg/Ml 1 Ml Vial IM 01/05/24 05:10 Q15M PRN Bleeding Diphtheria/Pertussis/Tetanus Vacc 0.5 ml 01/05/24 09:00 Adacel Diph,Pertuss(Acell),Tet Vac/Pf 0.5 Ml Adult Syringe IM 01/05/24 09:01 .ONCE ONE Docusate Sodium 100 mg 01/04/24 09:00 Docusate Sodium 100 Mg Capsule PO BID MARK Fentanyl Citrate 100 mcg 01/03/24 05:10 Fentanyl Citrate/Pf 100 Mcg/2 Ml Vial EPIDURAL ONCE PRN epidural Sodium Chloride 1,000 mls @ 125 mls/hr 01/03/24 05:30 01/03/24 12:54 Sodium Chloride 0.9% 1,000 Ml IV 125 mls/hr .Q8H MARK Administration Ropivacaine/Sodium Chloride 400 mg in 200 mls @ 6 mls/hr 01/03/24 05:15 01/03/24 15:18 Naropin 0.2% 400 Mg/200 Ml Bag EPIDURAL 6 mls/hr Q24H MARK Administration Oxytocin/Sodium Chloride 10 units in 500 mls @ 6 mls/hr 01/03/24 06:13 01/03/24 06:17 Pitocin 10 Unit/500 Ml-Ns IV 2 milliunit/min TITR PRN 6 mls/hr 0 Administration Protocol 2 MILLIUNIT/MIN Oxytocin/Sodium Chloride 10 units in 500 mls @ 6 mls/hr 01/03/24 17:30 01/03/24 18:18 Pitocin 10 Unit/500 Ml-Ns IV 0 milliunit/min TITR MARK 60 mls/hr Administration Protocol 2 MILLIUNIT/MIN Ibuprofen 600 mg 01/03/24 23:47 01/04/24 00:31 Ibuprofen 600 Mg Tablet PO 600 mg Q6H PRN Administration Moderate Pain Lidocaine 5 ml 01/03/24 05:10 Lidocaine Viscous 2% 15 Ml Solution TOPICAL ONCE PRN Pain Lidocaine 1 ml 01/03/24 05:10 01/03/24 23:32 Lidocaine Hcl 1% 200 Mg/20 Ml Mdv INJ 1 ml ONCE PRN Administration Pain Measles/Mumps/Rubella Vaccine Live 0.5 ml 01/05/24 09:00 Measles,Mumps,Rubella Vacc/Pf 0.5 Ml Vial SQ 01/05/24 09:01 .ONCE ONE Methylergonovine Maleate 0.2 mg 01/03/24 05:10 Methylergonovine Maleate 0.2 Mg/Ml Ampule IM 01/05/24 05:10 ONCE PRN Uterine Contractility/Contract Methylergonovine Maleate 0.2 mg 01/03/24 05:10 Methylergonovine Maleate 0.2 Mg Tablet PO 01/05/24 05:10 Q4H PRN Uterine Contractility/Contract Misoprostol 600 mcg 01/03/24 05:10 Misoprostol 100 Mcg Tablet PO 01/05/24 05:10 ONCE PRN Uterine Bleeding Misoprostol 800 mcg 01/03/24 05:10 Misoprostol 100 Mcg Tablet SL 01/05/24 05:10 ONCE PRN Uterine Bleeding Misoprostol 1,000 mcg 01/03/24 05:10 Misoprostol 100 Mcg Tablet MN 01/05/24 05:10 ONCE PRN Uterine Bleeding Ondansetron HCl 4 mg 01/03/24 05:10 Ondansetron Pf 4 Mg/2 Ml Vial IV Q6H PRN Nausea And Vomiting Ondansetron HCl 4 mg 01/03/24 05:10 Ondansetron 4 Mg Rapdis Tablet SL Q6H PRN Nausea And Vomiting Oxytocin 10 unit 01/03/24 05:10 Oxytocin 10 Unit/Ml Vial IM 01/05/24 05:10 ONCE PRN bleeding Senna 17.2 mg 01/03/24 20:00 Sennosides 8.6 Mg Tablet PO QHS PRN Constipation Simethicone 80 mg 01/03/24 23:47 Simethicone 80 Mg Tab.Chew PO QID PRN Abdominal Distention Temazepam 15 mg 01/03/24 23:47 Temazepam 15 Mg Capsule PO QHS PRN Sleep Witch Pat/Glycerin 1 pad 01/03/24 23:47 01/04/24 00:31 Glycerin/Witch Pat Pads TOPICAL 1 pad Q2H PRN Administration Pain Diet Category Date Time Status Regular Consistency Diet Diet 01/03/24 23:48 Active Neurology Patient orientation (short person,place,time,situation list) Respiratory Oxygen Delivery Method Room Air Oxygen Delivery Method Room Air Oxygen Delivery Method Room Air Oxygen Delivery Method Room Air Renal Bladder Pattern Continent Bladder Pattern Continent Catheter Urinary Catheter Date of 01/03/24 Insertion [Urethral] Urinary Catheter Time of 15:50 Insertion [Urethral]
--- NOTE | 2024-01-04 08:06 | P.OBPN_ITS ---
OB - PN: Subj Subjective Patient comments: no complaints [place] status: doing well and well [place] feeding status: exclusively Exam Constitutional Vital Signs, click to edit/add: Last Vital Signs Temp 96.4 F L 01/04/24 03:26 Pulse 81 01/04/24 07:38 Resp 16 01/04/24 03:30 BP 109/66 01/04/24 07:38 O2 Del Method Room Air 01/04/24 03:30 Documenting provider has reviewed patient's vital signs: yes Common normals: oriented x3 Orientation/consciousness: Yes awake, Yes oriented to person, Yes oriented to place and Yes oriented to time HENMT Common normals: normocephalic Eye Common normals: EOMs intact bilaterally Neck & C-Spine Common normals: full ROM and no lymphadenopathy Lymph Lymphatic: no lymphadenopathy noted Chest Common normals: inspection of chest normal Respiratory Common normals: normal respiratory effort Auscultation: clear to auscultation bilaterally Cardio Common normals: regular rate and regular rhythm Rate: regular rate Rhythm: regular rhythm GI Common normals: Normal to inspection, nondistended, normoactive bowel sounds present, soft to palpation and non-tender Auscultation: normoactive bowel sounds Palpation: soft Common normals: no CVA tenderness Back & Pelvis Common normals: no CVA tenderness Extremity Common normals: normal to inspection and full ROM Neuro Common normals: oriented x3 Sensorium/orientation: awake, alert, oriented to person, oriented to place and oriented to time Psych Common normals: mental status grossly normal and thought process normal Attitude: calm Results Labs Labs: Short CBC 01/04/24 Range/Units 05:54 WBC 18.3 H (4.0-11.0) 10^3/uL Hgb 9.7 L (12.0-16.0) g/dL Hct 28.4 L (36.0-48.0) % Plt Count 153 (150-450) 10^3/uL Urinary Catheter Management Urinary Catheter Management Urethral: Cath placed during this visit: yes Urethral indwelling: No Insertion date: 01/03/24 Insertion time: 15:50 OB - PN: A/P Plan - Vaginal Delivery day: 1 Plan: routine care Time Spent with Patient Time: Total time spent is greater than 50% in coordination of care (as documented) at patient's floor/unit and/or counseling patient: Total time spent with greater than 50% in coordination of care (as documented) at patient's floor/unit and/or counseling patient: less than 15 minutes
[2024-01-04] MEDS: DOCUSATE SODIUM 100 MG CAPSULE PO (20:18)
[2024-01-05] MEDS: IBUPROFEN 600 MG TABLET PO (09:13)
[2024-01-05] MEDS: DOCUSATE SODIUM 100 MG CAPSULE PO (09:13)
[2024-01-05 09:30] VITALS: TEMP 36.7
--- NOTE | 2024-01-05 09:52 | P.OBPN_ITS ---
OB - PN: Subj Subjective Patient comments: no complaints and pain well controlled [place] status: doing well Exam Constitutional Vital Signs, click to edit/add: Last Vital Signs Temp 96.6 F L 01/04/24 23:38 Pulse 79 01/04/24 23:38 Resp 18 01/04/24 23:35 BP 113/68 01/04/24 23:38 O2 Del Method Room Air 01/04/24 23:35 Documenting provider has reviewed patient's vital signs: yes Common normals: no apparent distress Respiratory Common normals: normal respiratory effort and clear to auscultation bilaterally Cardio Common normals: regular rate and regular rhythm GI Common normals: Normal to inspection, nondistended, normoactive bowel sounds present Extremity Common normals: no clubbing, cyanosis or edema and no calf tenderness Urinary Catheter Management Urinary Catheter Management Urethral: Cath placed during this visit: yes Urethral indwelling: No Insertion date: 01/03/24 Insertion time: 15:50 OB - PN: A/P Plan - Vaginal Delivery day: 2 Plan: routine care, discharge home and follow up 6 weeks Time Spent with Patient Time: Total time spent is greater than 50% in coordination of care (as documented) at patient's floor/unit and/or counseling patient: Total time spent with greater than 50% in coordination of care (as documented) at patient's floor/unit and/or counseling patient: less than 15 minutes
[2024-01-05 10:43] VITALS: BP 113/66; PULSE 77
== END 2024-01-05 12:50 | disposition home or self-care (01) | DRG 560 ==
PROVIDERS: Admitting Provider Obstetrics & Gynecology; Visit Provider Obstetrics & Gynecology
DX: O70.0 First degree perineal laceration during delivery (principal); Z3A.39 39 weeks gestation of pregnancy; Z37.0 Single live birth; Z88.0 Allergy status to penicillin
CPT/HCPCS: 36415; 51702; 59050; 59410; 80307; 85025; 85027; 86850; 86900; 86901; 96365; 96366; 96376

== ENCOUNTER 2024-01-09 07:57 | Outpatient (OUT) | payer OTHER, SELFPAY ==
--- OUTSIDE RECORDS SUMMARY | 2024-01-09 08:04 | XMS_ITS | CCD ---
Author Organization [facility] Care Team Providers Care Certified Hyperbaric Technologist Name Role Phone No Pcp, No Pcp Primary Care Provider Unavailabl e AHMED, ABEER Referring Unavailable CELIA, EMILE R Primary Care Unavailable Celia DO, Emile R Primary Care Provider [phone] Molly Solo DO Primary Care Provider CELIA, [...] SULFATE] Drug Allergy 9 Itching [facility] (9 sources) Penicillins; Translations: [PENICILLINS] Propensity to adverse reactions to drug 9 Anaphylaxis, Hives [facility] (2 sources) Gentamicin Drug Allergy [...] UA Negative Negative - 4(70) +++ mg/dL [facility] Blood, UA Negative Negative - 50 Arsenio/mcL [facility] Clarity, UA Clear [facility] Color, UA Yellow [facility] Glucose, UA Negative Negative - 1999(110) ++++ mg/dL [facility] Interpretation and review of laboratory results Abnormal [facility] Ketones, UA Negative Negative - 160(16) ++++ mg/dL [facility] Leukocytes, UA Negative Negative - 500+++ Marie/mcL [facility] Nitrite, UA Negative Negative - Positive [facility] pH, UA 5.5 5 - 9 [facility] Protein, UA Negative Negative - 1999(20) ++++ mg/dL [facility] Spec Grav, UA 1.020 1 - 1.03 [facility] Urobilinogen, UA 1.0 0.2 - 12 mg/dL [facility] Ultrasound - OfficeOrdered B y: Lilian Sandhu on 11-14-2023 Radiology Study observation (narrative) [facility] Ultrasound - OfficeOrdered B y: Lilian Leales on 11-08-2023 [facility] CBC AND AUTO DIFFon 10-09-19 24 ABSOLUTE BASOPHIL 0.0 X10E9/L Normal 0.0-0.2 [facility] Comment on above: Performed By: #### L B1323, HBELEC, 63286-4 #### [facility] ([id number]) [address] [facility], [place] [address] #### CBCA, 45951-2, 8014-3, 50070-1, 1504-0 #### [facility] ([id number]) [address], [address] [place] [address] ABSOLUTE NEUTROPHIL 8.3 X10E9/L High 1.5-6.[address] [facility] Comment on above: Performed By: #### L B1323, HBELEC, 06314-6 #### [facility] ([id number]) [address] [place] [address] #### CBCA, 42005-0, 8014-3, 96880-3, 1504-0 #### [facility] ([id number]) [address], [address] [place] [address] Basophils/100 WBC (Bld) 0.3 % Normal [facility] Comment on above: Performed By: #### L B1323, HBELEC, 19123-0 #### [facility] ([id number]) [address] [place] [address] #### CBCA, 44609-5, 8014-3, 03205-6, 1504-0 #### [facility] ([id number]) [address], [address] [place] [address] Eosinophils (Bld) [#/Vol] 0.0 10*3/uL Normal 0.0-0.4 [facility] Comment on above: Performed By: #### L B1323, HBELEC, 50153-2 #### [facility] ([id number]) [address] [place] [address] #### CBCA, 61260-6, 8014-3, 11347-7, 1504-0 #### [facility] ([id number]) [address], [address] [place] [address] Eosinophils/100 WBC (Bld) 0.3 % Normal [facility] Comment on above: Performed By: #### L B1323, HBELEC, 35630-1 #### [facility] ([id number]) [address] [place] [address] #### CBCA, 47169-8, 8014-3, 03119-7, 1504-0 #### [facility] ([id number]) [address], [address] [place] [address] Erythrocyte distribution width (RBC) [Ratio] 13.5 % Normal 11.5-15.0 [facility] Comment on above: Performed By: #### L B1323, HBELEC, 38962-7 #### [facility] ([id number]) [address] [place] [address] #### CBCA, 92599-0, 8014-3, 32323-2, 1504-0 #### [facility] ([id number]) [address], [facility] [address] [place] [address] Hematocrit (Bld) [Volume fraction] 31.1 % Low 35-47 [facility] Comment on above: Performed By: #### L B1323, HBELEC, 25864-9 #### [facility] ([id number]) [address] [place] [address] #### CBCA, 92924-8, 8014-3, 84321-8, 1504-0 #### [facility] ([id number]) [address], [facility] [address] [place] [address] Hemoglobin (Bld) [Mass/Vol] 11.0 g/dL Low 11.7-15.5 [facility] Comment on above: Performed By: #### L B1323, HBELEC, 77082-3 #### [facility] ([id number]) [address] [place] [address] #### CBCA, 06710-1, 8014-3, 78261-4, 1504-0 #### [facility] ([id number]) [address], [facility] [address] [place] [address] Lymphocytes (Bld) [#/Vol] 1.5 10*3/uL Normal 1.0-3.5 [facility] Comment on above: Performed By: #### L B1323, HBELEC, 83641-7 #### [facility] ([id number]) [address] [place] [address] #### CBCA, 22656-0, 8014-3, 65049-5, 1504-0 #### [facility] ([id number]) [address], [address] [place] [address] Lymphocytes/100 WBC (Bld) 14.1 % Normal [facility] Comment on above: Performed By: #### L B1323, HBELEC, 06823-8 #### [facility] ([id number]) [address] [place] [address] #### CBCA, 72384-6, 8014-3, 83874-9, 1504-0 #### [facility] ([id number]) [address], [address] [place] [address] MCH (RBC) [Entitic mass] 31.4 pg Normal 27-34 [facility] Comment on above: Performed By: #### L B1323, HBELEC, 99319-6 #### [facility] ([id number]) [address] [place] [address] #### CBCA, 54542-2, 8014-3, 96273-4, 1504-0 #### [facility] ([id number]) [address], [address] [place] [address] MCHC (RBC) [Mass/Vol] 35.3 g/dL Normal 32-36 [facility] Comment on above: Performed By: #### L B1323, HBELEC, 65931-0 #### [facility] ([id number]) [address] [place] [address] #### CBCA, 11480-1, 8014-3, 75799-6, 1504-0 #### [facility] ([id number]) [address], [address] [place] [address] MCV (RBC) [Entitic vol] 89 fL Normal 80-100 [facility] Comment on above: Performed By: #### L B1323, HBELEC, 57301-5 #### [facility] ([id number]) [address] [place] [address] #### CBCA, 61745-5, 8014-3, 18694-3, 1504-0 #### [facility] ([id number]) [address], [address] [place] [address] Monocytes (Bld) [#/Vol] 0.5 10*3/uL Normal 0-0.9 [facility] Comment on above: Performed By: #### L B1323, HBELEC, 29766-5 #### [facility] ([id number]) [address] [place] [address] #### CBCA, 78379-6, 8014-3, 87637-4, 1504-0 #### [facility] ([id number]) [address], [address] [place] [address] Monocytes/100 WBC (Bld) 5.2 % Normal [facility] Comment on above: Performed By: #### L B1323, HBELEC, 64354-3 #### [facility] ([id number]) [address] [place] [address] #### CBCA, 23957-7, 8014-3, 04715-5, 1504-0 #### [facility] ([id number]) [address], [address] [place] [address] Neutrophils/100 WBC (Bld) 80.1 % Normal [facility] Comment on above: Performed By: #### L B1323, HBELEC, 43086-9 #### [facility] ([id number]) [address] [place] [address] #### CBCA, 70805-9, 8014-3, 51827-5, 1504-0 #### [facility] ([id number]) [address], [address] [place] [address] Platelet mean volume (Bld) [Entitic vol] 8.5 fL Normal 7-12 [facility] Comment on above: Performed By: #### L B1323, HBELEC, 10970-1 #### [facility] ([id number]) [address] [place] [address] #### CBCA, 29093-3, 8014-3, 30477-1, 1504-0 #### [facility] ([id number]) [address] [facility] [place] [address] Platelets (Bld) [#/Vol] 192 10*3/uL Normal 150-450 [facility] Comment on above: Performed By: #### L B1323, HBELEC, 16679-6 #### [facility] ([id number]) [address] [place] [address] #### CBCA, 06979-6, 8014-3, 53928-8, 1504-0 #### [facility] ([id number]) [address], [address] [place] [address] RBC COUNT 3.49 X10E12/L Low 3.80-5.20 [facility] Comment on above: Performed By: #### L B1323, HBELEC, 88799-0 #### [facility] ([id number]) [address] [place] [address] #### CBCA, 23725-6, 8014-3, 31047-1, 1504-0 #### [facility] ([id number]) [address] [place] [address], [address] [place] [address] WBC (Bld) [#/Vol] 10.4 10*3/uL Normal 4.0-11.0 [facility] Comment on above: Performed By: #### L B1323, HBELEC, 67264-0 #### [facility] ([id number]) [address] [place] [address] #### CBCA, 54752-1, 8014-3, 17135-0, 1504-0 #### [facility] ([id number]) [address] [place] [address], [address] [place] [address] CHLAMYDIA SEROLOGYon 024 C PNEUMONIAE IGG < 1:64 Normal <1:64 [facility] Comment on above: Performed By: #### S CLAM #### [facility] ([id number]) [address] [place] [address] C PNEUMONIAE IGM <1:20 Normal <1:20 [facility] Comment on above: Performed By: #### S CLAM #### [facility] ([id number]) [address] [place] [address] C PSITTACI IGG < 1:64 Normal <1:64 [facility] Comment on above: Result Comment: [...] developed and its performance characteristics determined by [email or web address]. It has not been cleared or approved by the [place] Food and Drug Administration. This test was performed in a CLIA certified laboratory and is intended for clinical purposes. Performed By: [email or web address] [address] [place] [address] Agency Recruiter: Bernardino Burkett MD, PhD CLIA Number: [id number] Performed By: #### S CLAM #### [facility] ([id number]) [address] [place] [address] C PSITTACI IGM <1:20 Normal <1:20 [facility] Comment on above: Performed By: #### S CLAM #### [facility] ([id number]) [address] [place] [address] C TRACHOMATIS IGG 1:128 High <1:64 [facility] Comment on above: Performed By: #### S CLAM #### [facility] ([id number]) [address] [place] [address] C TRACHOMATIS IGM <1:20 Normal <1:20 [facility] Comment on above: Performed By: #### S CLAM #### [facility] ([id number]) [address] [place] [address] Glucose 1 Hr post 50 g gluco se PO [Mass/Vol]on 10-09-2023 GLU 1H POST 50G LOAD 135 mg/dL Normal 65-[address] [facility] Comment on above: Performed By: #### L B1323, HBELEC, 92535-6 #### [facility] ([id number]) [address] [place] [address] #### CBCA, 18350-1, 8014-3, 36404-9, 1504-0 #### [facility] ([id number]) [address] [facility] [facility] [place] [address] HCV RNA RICCI+probe Qnon 10-09 HCV RNA QUANT PCR Not detected Normal Undetected [facility] Comment on above: Result Comment: NOTE Result in log IU/mL is Undetected. ADDITIONAL INFORMATION The quantification range of this assay is 15 to 100,000,000 IU/mL (1.18 log to 8.00 log IU/mL). Testing was performed using the silke HCV test ([employer] with the silke Decision Pace0 System. Test Performed by: [facility] [address] [place] [address] Concierge Receptionist: Luis Manuel Wharton M.D. Ph.D.; CLIA# [id number] Performed By: #### L B1323, HBELEC, 40277-0 #### [facility] ([id number]) [address] [place] [address] #### CBCA, 99745-7, 8014-3, 69205-2, 1504-0 #### [facility] ([id number]) [address], [address] [place] [address] HGB ELECTRO INTERPon 024 HGB ELECTRO INTERP See below Normal [facility] Comment on above: Result Comment: NOTE [...] history. Performed By: #### L B1323, HBELEC, 53718-5 #### [facility] ([id number]) [address] [place] [address] #### CBCA, 30174-9, 8014-3, 73352-6, 1504-0 #### [facility] ([id number]) [address] [facility] [facility] [place] [address] STAFF REVIEW See below Normal [facility] Comment on above: Result Comment: NOTE Reviewed by Traah Mcdermott DO, MPH Test Performed By: [place] [address] Agency Recruiter: Damon Marie III, M.D. CLIA #[id number] Performed By: #### L B1323, HBELEC, 90640-7 #### [facility] ([id number]) [address] [place] [address] #### CBCA, 57384-3, 8014-3, 14671-7, 1504-0 #### [facility] ([id number]) [address] [facility] [facility] [place] [address] HGB ELECTROPHORESISon 2023 Abnormal Hb See below Normal No abnormal hemoglobin identified. [facility] Comment on above: Result Comment: NOTE No abnormal hemoglobin identified. Test Performed By: [place] [address] Agency Recruiter: Damon Marie III, M.D. CLIA #[id number] Performed By: #### L B1323, HBELEC, 86292-8 #### [facility] ([id number]) [address] [place] [address] #### CBCA, 69168-1, 8014-3, 92160-2, 1504-0 #### [facility] ([id number]) [address] [facility] [facility] [place] [address] Hb A Percent 97.2 % Normal 96.2-98.0 [facility] Comment on above: Performed By: #### L B1323, HBELEC, 46544-2 #### [facility] ([id number]) [address] [place] [address] #### CBCA, 55689-9, 8014-3, 64203-8, 1504-0 #### [facility] ([id number]) [address] [facility], [address] [place] [address] Hb A2 Percent 2.8 % Normal 2.0-3.1 [facility] Comment on above: Performed By: #### Jf B1323, HBELEC, 53220-5 #### [facility] ([id number]) [address] [place] [address] #### CBCA, 90357-5, 8014-3, 15195-7, 1504-0 #### [facility] ([id number]) [address] [place] [address], [address] [place] [address] Rubella virus IgG Qn (S)on 0 10-09-2023 RUBELLA IgG 35 IU/mL Normal [facility] Comment on above: Result Comment: Interpretation-------- <8 NEGATIVE-considered Not Immune 8-9 EQUIVOCAL-consider retesting with new specimen >9 POSITIVE-considered Immune Performed By: #### Jf B1323, HBELEC, 17809-1 #### [facility] ([id number]) [address] [place] [address] #### CBCA, 33674-2, 8014-3, 93760-1, 1504-0 #### [facility] ([id number]) [address] [place] [address], [address] [address] T. pallidum IgG+IgM IA Ql (S )on 10-09-2023 Syphilis Total <0.2 Normal 0.0-0.8 [facility] Comment on above: Result Comment: NON REACTIVE No serologic evidence of infection to Treponema pallidum (syphilis). Repeat testing may be considered in patients with suspected acute or primary syphilis in 2 to 4 weeks. Performed By: #### L B1323, HBELEC, 67160-9 #### [facility] ([id number]) [address] [place] [address], [place] [address] #### CBCA, 63566-6, 8014-3, 74059-4, 1504-0 #### [facility] ([id number]) [address] [facility], [address] [place] [address] VZV IgG IA Ql (S)on 10-09-19 24 VARICELLA IgG 0.4 AI Normal <0.9 [facility] Comment on above: Result Comment: Interpretation-------- <0.9 Negative 0.9 - 1.0 Equivocal >1.0 Positive Performed By: #### L B1323, HBELEC, 29635-8 #### [facility] ([id number]) [address] [place] [address] #### EFREMA, 36940-4, 8014-3, 95672-7, 1504-0 #### [facility] ([id number]) [address] [facility], [address] [place] [address] Vital Signs Date Time Vital Sign Value Performing Clinician Facility 12-06-2023 09:46-0500 Body height 165.1 cm Jennie Vargas MD Work Phone: [facility] 12-06-2023 09:46-0500 Body mass index (BMI) [Ratio] 28.51 kg/m2 Jennie Vargas MD Work Phone: [facility] 12-06-2023 09:46-0500 Body weight 77.7 kg [facility] MD [facility] 12-06-2023 09:46-0500 Diastolic blood pressure 65 mm[Hg] Jennie Vargas MD Work Phone: [facility] Comment on above: 26 cm arm circumfere nce/Dark blue cuff used 12-06-2023 09:46-0500 Heart rate 79 /min Jennie Vargas MD Work Phone: [facility] 12-06-2023 09:46-0500 Systolic blood pressure 124 mm[Hg] Jennie Vargas MD Work Phone: [facility] Comment on above: 26 cm arm circumfere nce/Dark blue cuff used 11-29-2023 11:10-0500 Body height 165.1 cm Yary Cantu MD Work Phone: [facility] 11-29-2023 11:10-0500 Body mass index (BMI) [Ratio] 28.32 kg/m2 Yary Cantu MD Work Phone: [facility] 11-29-2023 11:10-0500 Body weight 77.2 kg Yary Cantu MD Work Phone: [facility] 11-29-2023 11:10-0500 Diastolic blood pressure 81 mm[Hg] Yary Cantu MD Work Phone: [facility] 11-29-2023 11:10-0500 Heart rate 98 /min Yary Cantu MD Work Phone: [facility] 11-29-2023 11:10-0500 Systolic blood pressure 128 mm[Hg] Yary Cantu MD Work Phone: [facility] 11-15-2023 10:50-0500 Body mass index (BMI) [Ratio] 28.09 kg/m2 Emile Celia DO Work Phone: [facility] 11-15-2023 10:50-0500 Body weight 76.57 kg Emile Celia DO Work Phone: [facility] 11-15-2023 10:50-0500 Diastolic blood pressure 72 mm[Hg] Emile Celia DO Work Phone: [facility] 11-15-2023 10:50-0500 Systolic blood pressure 118 mm[Hg] Emile Celia DO Work Phone: [facility] Healthcare Encounters Encounter Date Encounter Type Care Provider Facility Start: 12-28-2023 End: 12-28-2023 ambulatory EMILE CELIA Not Available Start: 12-20-2023 End: 12-20-2023 ambulatory EMILE CELIA Not Available Start: 12-14-2023 End: 12-14-2023 ambulatory EMILE CELIA Not Available Start: 12-07-2023 End: 12-07-2023 ambulatory EMILE CELIA Not Available Start: 12-06-2023 End: 12-07-2023 ambulatory EMILE R CELIA [facility] Start: 12-06-2023 End: 12-06-2023 Office outpatient visit 15 minutes Jennie Vargas MD Work Phone: [facility] Comment on above: abnormality af fecting management of mother, single or unspecified fetus (Primary Dx); Pelvic kidney; Abnormal ultrasound; 35 weeks gestation of Start: 11-30-2023 End: 11-30-2023 ambulatory EMILE CELIA Not Available Start: 11-29-2023 End: 11-29-2023 Office consultation new/estab patient 60 min Yary Cantu MD Work Phone: [facility] Comment on above: renal anomaly, single gestation (Primary Dx) Start: 11-15-2023 End: 11-15-2023 ambulatory EMILE CELIA Not Available Start: 11-15-2023 End: 11-15-2023 Office outpatient visit 15 minutes Emile Celia DO Work Phone: [facility] Comment on above: Third trimester preg willis Start: 11-14-2023 Orders Only Not In System Ref Prov [facility] Start: 11-01-2023 Orders Only Donavan Pressley MD Work Phone: [facility] Start: 11-01-2023 End: 11-01-2023 ambulatory DANIELLE HARMAN Not Available Start: 10-18-2023 End: 10-18-2023 ambulatory EMILE CELIA Not Available Start: 10-17-2023 End: 10-18-2023 ambulatory [facility] Start: 10-09-2023 End: 10-10-2023 ambulatory [facility] Start: 09-29-2023 Documentation procedure Reed Ascencio LCGC Work Phone: [facility] Comment on above: Outgoing Ca ll Start: 09-28-2023 Orders Only Lilian Sandhu [employer] [facility] Comment on above: Pelvic kidney (Prima ry Dx); Choroid plexus cyst, , affecting care of mother, antepartum, single gestation; 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 Start: 09-19-2023 End: 09-20-2023 ambulatory [facility] Procedures Date Procedure Procedure Detail Performing Clinician Start: 11-15-2023 Urnls dip stick/tabl et rgnt non-auto w/o micrscp [facility] Work Phone: Start: 11-08-2023 ULTRASOUND OFFICE Not I n System Ref Prov Plan of Treatment Date Care Activity Detail Author Start: 12-05-2024 Adult BMI Screening Adult BMI Screen [facility] Start: 12-05-2024 Tobacco Screening Tobacco Screening [facility] Start: 11-29-2024 Adult BMI Screening Adult BMI Screen [facility] Start: 11-29-2024 Tobacco Screening Tobacco Screening [facility] Start: 10-09-2024 Screening for Chlamy laurel trachomatis Chlamydia Screening [facility] Start: 09-28-2024 End: 09-28-2024 US MFM [...] Adult BMI Screening Adult BMI Screen ing [facility] Start: 09-19-2024 Tobacco Screening Tobacco Screening [facility] Start: 08-15-2024 Screening for Chlamy laurel trachomatis Chlamydia Screening [facility] Start: 12-06-2023 End: 12-06-2023 Patient encounter procedure [facility] Start: 11-30-2023 End: 11-30-2023 Patient encounter procedure 11/30/2023 10:40 AM EST Routine [facility] [address] [place] [id number] Emile Yang DO [address] [place] [address] [facility] Start: 11-29-2023 End: 11-29-2023 Patient encounter procedure 11/29/2023 11:00 AM EST Office Visit [facility] [address] [place] [id number] Yary Cantu MD [address] [place] [address] [facility] Start: 11-01-2023 End: [...] encounter procedure 10/17/2023 2:15 PM EST Appointment [facility] [address] [place] [id number] [facility] Start: 06-02-2023 Influenza vaccination Influenza Vacc ine [facility] Start: 2023 DTaP,Tdap and Td Vaccines (1 - Tdap) DTaP,Tdap and Td Vaccines (1 - Tdap) [facility] Start: 2022 Adult BMI Follow Up Plan Adult BMI Follow Up Plan [facility] Start: 2016 Depression Screening Depression Scre ening [facility] Payers Date Payer Category Payer Unknown [id number] 2.16.84 0.1.005549.3.579.2.1286 2004 Unknown [id number] 2.16.8 40.1.524528.3.579.2.1286 2004 Unknown [id number] 2.16.8 40.1.711621.3.579.2.1286 2004 Unknown [id number] 2.16.84 0.1.849993.3.579.2.1286 2004 Unknown [id number] 2.16.84 0.1.379458.3.579.2.1286 2004 Unknown [id number] 2.16.84 0.1.322736.3.579.2.1286 2004 Unknown [id number] 2.16.84 0.1.840694.3.579.2.1259 2004 Unknown [id number] 2.16.84 0.1.193699.3.579.2.1259 2004 Unknown [id number] 2.16.84 0.1.403484.3.579.2.1259 2004 Unknown [id number] 2.16.84 0.1.256504.3.579.2.1259 2004 Unknown [id number] 2.16.84 0.1.491632.3.579.2.1259 2004 Unknown [id number] 2.16.84 0.1.856571.3.579.2.1259 2004 Unknown [id number] 2.16.84 0.1.709410.3.579.2.1259 2004 Unknown [id number] 2.16.84 0.1.976842.3.579.2.1259 2003 Medicaid [id number]. [id number] 2004 Medicaid [id number] Social History Date Type Detail Facility Start: 02-23-2023 End: 08-17-2023 Tobacco smoking status NHIS Never smoked tobacco [facility] Start: 02-23-2023 End: 08-17-2023 Tobacco use and exposure Smokeless tobacco non-user [facility] Start: 09-19-2023 End: 12-06-2023 Alcohol intake Ex-drinker (finding) [facility] Start: 11-12-2020 End: 09-19-2023 History of Social function [facility] Start: 11-12-2020 End: 09-19-2023 Tobacco use panel [facility] Housing Instability Unknown [facility] Start: 04-13-2023 [facility] Start: 2005 Sex Assigned At Not on file P [facility] Start: 11-15-2023 Alcohol intake Lifetime non-d kassie (finding) [facility] Clinical Notes 09-29-2023 to 12-06-2023 Jennie [...] patient is in complete care of her beef splitter. Patient does have ultrasound and office visit [...] patient/family/caregiver Referring and communicating with other health healthcare applications analyst (not separately reported) Jennie Vargas MD [place] [address] [facility], the CDC, and other organizations representing maternal and public health professionals recommend that , , and lactating people and those considering receive the COVID-19 vaccination. Vaccination is the best method to reduce maternal and complications of SARS-CoV-2 infection. This document was created with [employer] technology. Though I make every effort to review the dictation as it is transcribed, on occasion the spoken word can be misinterpreted by the technology leading to inappropriate words, phrases, or sentences. This note is addressed to the requesting provider as a consultation for clinical guidance. Specific medical abbreviations are occasionally used and those are generally approved by the [place]?Board of?Obstetrics and?Gynecology?as well as?Kashif randall abbreviations. The above plan of care was based solely on the diagnoses for which a consultation was requested. ?More frequent testing may be indicated based on her other medical/obstetrical conditions. The management of other or medical conditions is beyond the scope of requested consultation and will continue to be followed by the primary beef splitter or primary care provider. Note to patient: [...] provider today? no documented in this encounter [facility] 11-29-2023 History of Present illness Narrative Referring Physician: Jagdish Lyle MD [address] Rogelio Abbott is a 18 y.o. female that was referred to the pediatric urology clinic for renal abnormality discovered on ultrasounds. The condition was first noted to be present on ultrasound performed at [facility]. The fetus is a female fetus. [...] Ms. Abbott is planning to deliver at [facility]. I have recommended that we first [...] available documented in this encounter [facility] [id number] 11-29-2023 Instructions Yary Cantu MD - 11/29/2023 [...] rule out VUR. [email or web address] History of Present illness Narrative Reason [...] nursing note reviewed. Exam conducted with a woodworker helper present. Vitals: Estimated body mass index is [...] Emile Yang DO documented in this encounter [facility] 09-29-2023 History of Present illness Narrative Summary: FOB carrier screening results Called and discussed FOB's carrier screening results with Rogelio. He screened negative for cystic fibrosis and HBB-related hemoglobinopathies. We reviewed that the likelihood her is affected with CF or a hemoglobinopathy is low based on these results. She understood and had no further questions. 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 Choroid plexus cyst, , affecting care of mother, antepartum, single gestation 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 [facility] Diagnosis Third trimester state, incidental [facility] Diagnosis renal anomaly, single gestation- Primary [facility] Diagnosis abnormality affecting management of mother, single or unspecified fetus- 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 Abnormal ultrasound 35 weeks gestation of [facility] filedocumented in this encounter [facility] filedocumented in this encounter [facility] on filedocumented in this encounter [facility] filedocumented in this encounter [facility] Reason for Referral Specialty Diagnoses / Procedures Referred By Bryan woodson Referred To Contact Maternal and Medicine Diagnoses Pelvic kidney Choroid plexus cyst, , affecting care of mother, antepartum, single gestation 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 Procedures US MFM with or without consult Jagdish yLle MD [address], [address] [place] [id number] [facility] [address] [place] [address] Referral ID Status Reason Start Date Expiration Date V isits Requested Visits Authorized [id number] Pending Review 09/28/2023 09/27/2024 1 1 Summary Purpose Family History No Family History Records FoundNo Family History Records FoundNo Family History Records Found Advance Directives No Advanced Directives Records FoundNo Advanced Directives Records FoundNo Advanced Directives Records Found Additional Source Comments Care Teams (unrecognized sec tion and content) Certified Hyperbaric Technologist Relationship Specialty Start Date End Date No Pcp, [place] [address] PCP - General Family Medicine 05/30/23 Certified Hyperbaric Technologist Relationship Specialty Start Date End Date No Pcp, [place] [address] PCP - General Family Medicine 05/30/23 Certified Hyperbaric Technologist Relationship Specialty Start Date End Date Emile Yang DO [address] , [place] [address] PCP - General Obstetrics and Gynecology 10/09/23 Certified Hyperbaric Technologist Relationship Specialty Start Date End Date PhillMolly schneiderDO [address] [place] [address] PCP - General Family Medicine 02/23/23 Certified Hyperbaric Technologist Relationship Specialty Start Date End Date Emile Yang DO [address] , [facility] [place] [address] PCP - General Obstetrics and Gynecology 10/09/23 Certified Hyperbaric Technologist Relationship Specialty Start Date End Date Emile Yang DO [address] , [facility] [place], [place] [id number] PCP - General Obstetrics and Gynecology 10/09/23 Reason for Visit (unrecogniz ed section and content) Reason Onset Date Comments Outgoing Call 09/29/2023 Reason Comments Routine Visit Reason Comments New Patient Pelvic kidney Specialty Diagnoses / Procedures Referred By Bryan woodson Referred To Contact Pediatric Urology Diagnoses Pelvic kidney Jagdish Lyle MD [address] [address] Yary Cantu MD [address] [place] [address] Referral ID Status Reason Start Date Expiration Date Visits Requested Visits Authorized [id number] Pending Review Specialty Services Required 3 09/20/2024 1 1 Reason Comments 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 d[facility] Special[facility] EPIC FOR RECORDS PERTAINING [...] BE BASED ON THE PRIMARY CLINICAL RECORDS. [facility]. provides no warranty or guarantee of the accuracy or completeness of information in this document.
[2024-01-09 14:50] VITALS: BP 134/88; PULSE 70; TEMP 36.8; O2SAT 96
--- NOTE | 2024-01-09 14:57 | PC.NURSE ---
Jelly and 6 day old Christine arrive for follow up appointment. FOB attends as well. Parents states doing pretty good Relates baby is settling in and doing well at this time. Feeds well, sleeps and is adjusting to sleeping in bassinet. Mom reports being tired, but over all feels well. Jelly with VSS and assessment WNL. No complaints. No edema, headache or cramping. Perineum comfort is improving daily as continues to use water bottle, Dermoplast and witch dakota pads for comfort. Vaginal discharge minimal. Does relate nipples are tender, possibly cracked. Christine wakes with assessment. VSS and assessment WNL. No transcutaneous bili as infant pink in color with no signs of jaundice. Cord off as of yesterday, scant drainage noted at site.During discussion, baby comes to breast 7-8 times in 24 hours, feeding every 3.5 - 4 hours. Reviewed need for minimum of 8 feeds and preferably more in 24 hours. Mom also states started pumping when milk came in and now continuously feels full. Discussed use of pump, over supply and decreasing need to pump. Verbalized understanding. Supportive handouts given. Baby to breast, left nipple with visible cracking 12 - 6. Mom latches baby , shallow initially and baby slowly moves deeper into breast. Shown to release latch and deep latch instead. Jelly surprised at increased comfort. Takes baby off and re-latches independently again. Given Soothies, shells and tea bags with instruction for use. Verbalized understanding. Family home ambulatory , aware of [facility] support group and to call for questions or concerns.
== END 2024-01-09 15:04 | disposition home or self-care (01) ==
LOC: FBCO 07:58
PROVIDERS: Visit Provider Obstetrics & Gynecology
DX: Z39.2 Encounter for routine postpartum follow-up (principal)